=== PATIENT | male | born 1960 | race Caucasian/White ===

== ENCOUNTER 2018-02-20 08:03 | Inpatient (IN) | payer OTHER, SELFPAY ==
[~2018-02-20] VITALS: Ht 188 cm; Wt 106.0 kg
[2018-02-20] VITALS (8 sets, daily range): BP systolic 87–106; BP diastolic 31–42
[2018-02-20] MEDS ORDERED: PANTOPRAZOLE 80 MG in SODIUM CHLORIDE 0.9% 50 ML IVPB ONE (08:13)
[2018-02-20] MEDS ORDERED: PANTOPRAZOLE 80 MG in SODIUM CHLORIDE 0.9% 100 ML IV SCH (08:13)
[2018-02-20] MEDS ORDERED: SODIUM CHLORIDE 0.9% 1,000ML IVBOLUS ONE (08:30)
[2018-02-20] MEDS ORDERED: PLEASE ENTER HEIGHT AND WEIGHT MC SCH (08:30)
[2018-02-20] MEDS ORDERED: SODIUM CHLORIDE FLUSH 10ML SYR IVF ONE (08:30)
[2018-02-20] MEDS ORDERED: PLEASE ENTER ALLERGIES MC SCH (08:30)
[2018-02-20 09:07] LABS: ALBUMIN 1.7 g/dL (3.4-5.0); ANION GAP 32 mmol/L (5-15); CALCIUM 7.7 mg/dL (8.5-10.1); CHLORIDE 97 mmol/L (98-107)
[2018-02-20 09:10] LABS: FIO2 100 %
[2018-02-20] MEDS ORDERED: SODIUM BICARB 8.4%, 50ML SYRINGE ONE ×2 (09:11→15:14)
[2018-02-20 09:13] LABS: ALANINE AMINOTRANSFERASE 92 U/L (12-78); ALKALINE PHOSPHATASE 198 U/L (45-117); CREATINE KINASE, TOTAL 639 U/L (39-308); TOTAL PROTEIN 4.6 g/dL (6.4-8.2); TROPONIN I < 0.015 ng/mL (0.000-0.045)
[2018-02-20] MEDS ORDERED: PROPOFOL 100 ML IV PRN (09:16)
[2018-02-20] MEDS ORDERED: FENTANYL PF 100 MCG/2ML IVPush PRN (09:30)
[2018-02-20] MEDS: NOREPINEPHRINE 4 MG in SODIUM CHLORIDE 0.9% 246 ML IV PRN ×2 (09:30→14:42)
[2018-02-20] MEDS ORDERED: NOREPINEPHRINE 4 MG in SODIUM CHLORIDE 0.9% 246 ML IV PRN (09:30)
[2018-02-20] MEDS ORDERED: SENNOSIDES 8.8 MG/5 ML ORAL SOL NG PRN (09:30)
[2018-02-20] MEDS ORDERED: SODIUM BICARB 8.4%, 50ML SYRINGE IVPush ONE ×2 (09:30→15:30)
[2018-02-20] MEDS ORDERED: LACTULOSE 20 GM/30 ML UDC NG PRN (09:30)
[2018-02-20] MEDS ORDERED: BISACODYL 10 MG SUPP PR PRN ×2 (09:30→10:30)
[2018-02-20] MEDS ORDERED: PHARMACY MAY ADJ FOR RENAL FX MC SCH (09:30)
[2018-02-20] MEDS ORDERED: LIDOCAINE-MPF 1%, 2ML ENDO PRN (09:30)
[2018-02-20] MEDS ORDERED: SENNA/DOCUSATE TABLET NG PRN (09:30)
[2018-02-20 09:33] LABS: MEAN CORPUSCULAR HEMOGLOBIN 24.6 pg (27.5-34.5); MEAN CORPUSCULAR VOLUME 87.3 fL (81-97); MEAN PLATELET VOLUME 10.5 fL (7.4-10.4); PLATELET COUNT 93 x10^3/uL (130-400); RED BLOOD COUNT 1.87 x10^6/uL (4.38-5.82); RED CELL DISTRIBUTION WIDTH 26.4 % (9.4-14.8)
[2018-02-20 09:37] LABS: MEAN CORPUSCULAR HGB CONC 28.2 g/dL (33.2-36.2)
[2018-02-20 09:44] LABS: INTERNATIONAL NORMALIZED RATIO 2.73 (0.93-1.1); MD YES; PROTHROMBIN TIME 27.6 Seconds (9.6-11.5)
[2018-02-20 09:49] LABS: BAND#(MANUAL) 1.23 x10^3/uL; BANDS%(MANUAL) 10 % (0-7); LYMPH#(MANUAL) 4.55 x10^3/uL (1-3.4); LYMPHS% (MANUAL) 37 % (22-44); MONOS#(MANUAL) 0.62 x10^3/uL (0.3-2.7); MONOS% (MANUAL) 5 % (2-9); NRBC % (MANUAL) 8 % (0-1); SEGS% (MANUAL) 48 % (42-75)
[2018-02-20 09:50] LABS: ANISOCYTOSIS 2+; POLYCHROMASIA 1+
[2018-02-20 09:51] LABS: <PLATELET ESTIMATE> DECREASED; HYPOCHROMIA 2+
[2018-02-20 09:53] LABS: <PLT MORPHOLOGY> NORMAL PLT MORPH; ECHINOCYTES 1+
[2018-02-20 09:55] LABS: SCHISTOCYTES 1+
[2018-02-20] MEDS ORDERED: NPH,100V5 SQ (09:59)
[2018-02-20] MEDS ORDERED: INSU100V11 SQ (09:59)
[2018-02-20] MEDS ORDERED: SODIUM BICARBONATE 8.4% 150 MEQ in DEXTROSE 5% 1,000 ML IV SCH (10:00)
[2018-02-20] MEDS ORDERED: SODIUM BICARBONATE 8.4% 150 MEQ in DEXTROSE 5% 1,000 ML IV ONE (10:00)
[2018-02-20 10:04] LABS: CULTURE INDICATED? NO; MICROSCOPIC NOT IND
[2018-02-20 10:20] LABS: AMPHETAMINE SCREEN, URINE Negative (Negative); BARBITURATE SCREEN, URINE Negative (Negative); BENZODIAZEPINE SCREEN, URINE Positive (Negative); CANNABINOID SCREEN, URINE Negative (Negative); COCAINE SCREEN, URINE Negative (Negative); METHADONE SCREEN, URINE Negative (Negative); OPIATE SCREEN, URINE Negative (Negative)
[2018-02-20] MEDS ORDERED: morphine SULFATE 10 MG/ML, 1ML IVPush PRN (10:30)
[2018-02-20] MEDS ORDERED: ONDANSETRON 2MG/ML, 2ML IVPush PRN (10:30)
[2018-02-20] MEDS ORDERED: OXYcodone IR 5MG TABLET PO PRN (10:30)
[2018-02-20] MEDS ORDERED: ENOXAPARIN 40 MG/0.4 ML SQ SCH (10:30)
[2018-02-20] MEDS ORDERED: ACETAMINOPHEN 325 MG TABLET PO PRN (10:30)
[2018-02-20] MEDS ORDERED: POLYETHYLENE GLYCOL 17 GM PACKET PO PRN (10:30)
[2018-02-20] MEDS ORDERED: ONDANSETRON ODT 4 MG PO PRN (10:30)
[2018-02-20] MEDS ORDERED: LORazepam 2 MG/ML, 1ML IVPush PRN ×2 (10:30→22:30)
[2018-02-20] MEDS ORDERED: ENALAPRILAT 1.25 MG/ML, 2ML IVPush PRN (10:30)
[2018-02-20] MEDS ORDERED: LABETALOL 5MG/ML, 20ML IVPush PRN (10:30)
[2018-02-20] MEDS ORDERED: PROPOFOL 100 ML IV ONE (10:49)
[2018-02-20] MEDS ORDERED: VANCOMYCIN PER PHARMACY IV ONE (11:00)
[2018-02-20] MEDS ORDERED: PIPERACILLIN/TAZO/PMX 3.375GM 50 ML IVPB ONE (11:00)
[2018-02-20] MEDS: SODIUM BICARB 8.4%,50ML SYR. 50 MEQ in D5%-0.45% NACL 1,000 ML IV SCH ×2 (11:15→19:39)
[2018-02-20 11:55] LABS: TROPONIN I 0.041 ng/mL (0.000-0.045)
[2018-02-20] MEDS ORDERED: ALBUTEROL/IPRATROPIUM 2.5MG/0.5MG, 3 ML ONE (13:02)
[2018-02-20] MEDS ORDERED: SODIUM PHOSPHATE 20 MMOL in SODIUM CHLORIDE 0.9% 250 ML IVPB PRN (13:06)
[2018-02-20] MEDS ORDERED: DEXMEDETOMIDINE 200 MCG in SODIUM CHLORIDE 0.9% 48 ML IV PRN (13:06)
[2018-02-20] MEDS ORDERED: VECURONIUM 10 MG IVPush PRN (13:30)
[2018-02-20] MEDS ORDERED: MAGNESIUM SULFATE 1 GM in SODIUM CHLORIDE 0.9% 50 ML IVPB PRN (13:30)
[2018-02-20] MEDS: KSCALE TO 4.0 IV SCH ×3 (13:30→21:30)
[2018-02-20] MEDS: AMPICILLIN/SULBACTAM 3 GM in SODIUM CHLORIDE 0.9% 100 ML IV SCH ×2 (13:53→21:01)
[2018-02-20 14:07] LABS: O2 FLOW 50 L/min
[2018-02-20] MEDS: ARTIFICIAL TEARS OINT 3.5 GM EACHEYE SCH ×2 (14:53→21:05)
[2018-02-20] MEDS: BUSPIRONE 10 MG TABLET NG SCH ×2 (14:53→22:22)
[2018-02-20] MEDS: OCTREOTIDE 500 MCG in SODIUM CHLORIDE 0.9% 249 ML IV SCH ×2 (14:56→21:37)
[2018-02-20] MEDS ORDERED: OCTREOTIDE 500 MCG in SODIUM CHLORIDE 0.9% 249 ML IV SCH (15:00)
[2018-02-20] MEDS: ALBUTEROL/IPRATROPIUM 2.5MG/0.5MG, 3 ML INLINE SCH ×3 (15:00→22:42)
[2018-02-20] MEDS ORDERED: VASOPRESSIN 100 UNIT in SODIUM CHLORIDE 0.9% 495 ML IV PRN (15:00)
[2018-02-20] MEDS ORDERED: OCTREOTIDE 50 MCG/ML, 1ML (0.05MG/ML) IVPush ONE ×2 (15:00)
[2018-02-20] MEDS ORDERED: ATROPINE SYRINGE 0.1 MG/ML, 10ML ONE (15:26)
[2018-02-20] MEDS ORDERED: ATROPINE SYRINGE 0.1 MG/ML, 10ML IVPush PRN (15:30)
[2018-02-20] MEDS: LEVETIRACETAM 1,000 MG in SODIUM CHLORIDE 0.9% 100 ML IV SCH (15:44)
[2018-02-20] MEDS ORDERED: FILTER 0.22 MICRON FOR PHENYTOIN IV PRN (16:00)
[2018-02-20] MEDS ORDERED: PHENYTOIN SODIUM 1,000 MG in SODIUM CHLORIDE 0.9% 100 ML IV ONE (16:00)
[2018-02-20] MEDS ORDERED: EPINEPHRINE 1 MG in SODIUM CHLORIDE 0.9% 249 ML IV PRN (16:00)
[2018-02-20] MEDS: NOREPINEPHRINE 8 MG in SODIUM CHLORIDE 0.9% 242 ML IV PRN ×2 (16:32→17:04)
[2018-02-20 16:47] LABS: INTERNATIONAL NORMALIZED RATIO 3.12 (0.93-1.1); PROTHROMBIN TIME 31.4 Seconds (9.6-11.5)
[2018-02-20 16:51] LABS: TROPONIN I 0.126 ng/mL (0.000-0.045)
[2018-02-20] MEDS ORDERED: EPINEPHRINE 4 MG in SODIUM CHLORIDE 0.9% 246 ML IV PRN (17:00)
[2018-02-20] MEDS: EPINEPHRINE 8 MG in SODIUM CHLORIDE 0.9% 242 ML IV PRN ×2 (19:15→21:57)
[2018-02-20] MEDS ORDERED: PANTOPRAZOLE 40 MG IV IV SCH (21:00)
[2018-02-20] MEDS: PANTOPRAZOLE 80 MG in SODIUM CHLORIDE 0.9% 100 ML IV SCH (21:01)
[2018-02-20] MEDS: NOREPINEPHRINE 16 MG in SODIUM CHLORIDE 0.9% 234 ML IV PRN (21:02)
[2018-02-21] MEDS: LORazepam 2 MG/ML, 1ML IVPush PRN ×2 (00:32→06:19)
[2018-02-21] MEDS: AMPICILLIN/SULBACTAM 3 GM in SODIUM CHLORIDE 0.9% 100 ML IV SCH (01:43)
[2018-02-21] MEDS: NOREPINEPHRINE 16 MG in SODIUM CHLORIDE 0.9% 234 ML IV PRN ×2 (02:08→02:11)
[2018-02-21] MEDS: LEVETIRACETAM 1,000 MG in SODIUM CHLORIDE 0.9% 100 ML IV SCH (02:54)
[2018-02-21] MEDS: SODIUM BICARB 8.4%,50ML SYR. 50 MEQ in D5%-0.45% NACL 1,000 ML IV SCH (02:54)
[2018-02-21] MEDS: ALBUTEROL/IPRATROPIUM 2.5MG/0.5MG, 3 ML INLINE SCH (03:00)
[2018-02-21] MEDS ORDERED: SODIUM BICARB 8.4%, 50ML SYRINGE IVPush ONE (03:30)
[2018-02-21] MEDS: EPINEPHRINE 8 MG in SODIUM CHLORIDE 0.9% 242 ML IV PRN (03:46)
[2018-02-21 04:00] VITALS: BP 100/36
[2018-02-21] MEDS: BUSPIRONE 10 MG TABLET NG SCH (05:30)
[2018-02-21] MEDS: ARTIFICIAL TEARS OINT 3.5 GM EACHEYE SCH (05:57)
[2018-02-21] MEDS: PANTOPRAZOLE 80 MG in SODIUM CHLORIDE 0.9% 100 ML IV SCH (06:00)
[2018-02-21] MEDS ORDERED: morphine SULFATE 10 MG/ML, 1ML IVPush PRN (06:30)
[2018-02-21] MEDS ORDERED: SENNA/DOCUSATE TABLET PO SCH (09:00)
[2018-02-21] MEDS ORDERED: PHYTONADIONE 10 MG/ML, 1ML SQ SCH (09:00)
[2018-02-21] MEDS ORDERED: LORazepam 2 MG/ML, 1ML IV ONE (10:00)
[2018-02-21] MEDS ORDERED: LORazepam 2 MG/ML, 1ML IV PRN (10:00)
[2018-02-21] MEDS ORDERED: morphine SULFATE 10 MG/ML, 1ML IV ONE (10:00)
[2018-02-21] MEDS ORDERED: morphine SULFATE 10 MG/ML, 1ML IV PRN (10:00)
== END 2018-02-21 11:35 | disposition expired | DRG 871 ==
LOC: ED 11:10 → EDIP 11:11 → CCU 12:49
PROVIDERS: ADMIT Internal Medicine; ATTEND Internal Medicine
PROC: 30233N1 Transfusion of Nonautologous Red Blood Cells into Peripheral Vein, Percutaneous Approach (ICD-10-PCS; principal; 2018-02-20)
PROC: 0T9B70Z Drainage of Bladder with Drainage Device, Via Natural or Artificial Opening (ICD-10-PCS; 2018-02-20)
PROC: 5A1935Z Respiratory Ventilation, Less than 24 Consecutive Hours (ICD-10-PCS; 2018-02-20)
PROC: 0BH17EZ Insertion of Endotracheal Airway into Trachea, Via Natural or Artificial Opening (ICD-10-PCS; 2018-02-20)
PROC: 5A12012 Performance of Cardiac Output, Single, Manual (ICD-10-PCS; 2018-02-20)
PROC: 02HV33Z Insertion of Infusion Device into Superior Vena Cava, Percutaneous Approach (ICD-10-PCS; 2018-02-20)
DX: A41.9 Sepsis, unspecified organism (principal); E43 Unspecified severe protein-calorie malnutrition; J96.01 Acute respiratory failure with hypoxia; N17.0 Acute kidney failure with tubular necrosis; K85.90 Acute pancreatitis without necrosis or infection, unspecified; K72.00 Acute and subacute hepatic failure without coma; J69.0 Pneumonitis due to inhalation of food and vomit; D68.9 Coagulation defect, unspecified; E87.2 Acidosis; F11.20 Opioid dependence, uncomplicated; G93.1 Anoxic brain damage, not elsewhere classified; K92.2 Gastrointestinal hemorrhage, unspecified; Z99.11 Dependence on respirator [ventilator] status; I46.9 Cardiac arrest, cause unspecified; D64.9 Anemia, unspecified; E66.01 Morbid (severe) obesity due to excess calories; D69.6 Thrombocytopenia, unspecified; E11.649 Type 2 diabetes mellitus with hypoglycemia without coma; F10.10 Alcohol abuse, uncomplicated; J04.0 Acute laryngitis; Z87.891 Personal history of nicotine dependence; Z98.61 Coronary angioplasty status; Z68.30 Body mass index [BMI] 30.0-30.9, adult
CPT/HCPCS: 36430; 36600; 51702; 70450; 71045; 80053; 80307; 81003; 82550; 82553; 82803; 83605; 83690; 83735; 83880; 84100; 84132; 84145; 84443; 84478; 84484; 85018; 85025; 85610; 85730; 86850; 86900; 86923; 87040; 87070; 87077; 87081; 87147; 87186; 87205; 93005; 93306; 94002; 94003; 94640; 96365; 96375; 99285; G0378; J0295; J0461; J1165; J1953; J2354; J3010; J3475; J7070; J7620; C9113; J0171; J2060; J2270; J7030; J7050; P9016